=== PATIENT | male | born 1935 | race Caucasian/White ===

== ENCOUNTER 2024-05-02 09:00 | Outpatient (REF) | payer BC, SELFPAY ==
[2024-05-02 10:56] LABS: Vitamin B12 339 pg/mL (200-900)
== END 2024-05-02 09:01 | disposition home or self-care (01) ==
LOC: HO.LAB 09:00
PROVIDERS: Visit Provider Psychiatry & Neurology Neurology
DX: F03.90 Unspecified dementia, unspecified severity, without behavioral disturbance, psychotic disturbance, mood disturbance, and anxiety (principal)
CPT/HCPCS: 36415; 82607

== ENCOUNTER 2024-06-14 07:24 | Outpatient (REF) | payer BC, SELFPAY ==
--- NOTE | ~2024-06-14 | CT_ITS ---
EXAMINATION: CT HEAD WITHOUT CONTRAST CLINICAL INFORMATION: Dementia. COMPARISON: None available. TECHNIQUE: Contiguous axial imaging was performed from the skull base to vertex without intravenous administration of contrast. This CT examination was performed using dose optimization techniques as appropriate, variously including the following: *Automated exposure control. *Adjustment of mA and/or kV according to patient size (this includes techniques or standardized protocols for targeted exams where dose is matched to indication/reason for exam; i.e. extremities or head). *Use of iterative reconstruction technique. DLP: 932 mGy-cm FINDINGS: There is no evidence of acute intracranial hemorrhage or edematous territorial infarction. Coates-white matter differentiation is preserved. Scattered and partially confluent hypoattenuation in the periventricular and deep white matter are consistent with moderate microangiopathy. There is a degree of generalized cerebral volume loss with prominence of both the ventricles and sulcal spaces. However, there appears to be mildly disproportionate prominence of the ventricles. The posterior callosal angle is decreased (56 degrees) when measured on a corrected coronal image, orthogonal to the anterior commissure-posterior commissure line. No abnormal mass effect or midline shift. No extra-axial fluid collections. Calcific atherosclerotic disease of the intracranial internal carotid and vertebral arteries. No hyperdense vessel sign. No acute soft tissue or osseous abnormalities. Mild mucosal thickening of the paranasal sinuses. The mastoid air cells and middle ear cavities are clear. Bilateral lens extractions. CT/CT head/brain wo IV con IMPRESSION: 1. No evidence of acute intracranial hemorrhage or edematous territorial infarction. 2. Moderate underlying microangiopathy. 3. There is a degree of generalized cerebral volume loss with prominence of both the ventricles and sulcal spaces. However, there appears to be mildly disproportionate prominence of the ventricles. This may be due to disproportionate central volume loss; however, correlation with symptoms of potential superimposed normal pressure hydrocephalus is recommended. Electronically signed by: Chago Bernal DO 07/31/2024 05:30 AM [facility]
== END 2024-06-14 07:25 | disposition home or self-care (01) ==
LOC: HO.CT 07:24
PROVIDERS: Visit Provider Psychiatry & Neurology Neurology
DX: F03.90 Unspecified dementia, unspecified severity, without behavioral disturbance, psychotic disturbance, mood disturbance, and anxiety (principal)
CPT/HCPCS: 70450

== ENCOUNTER 2024-11-06 09:15 | Day surgery (SDC) | payer MEDICARE, SELFPAY ==
[2024-11-06] VITALS (8 sets, daily range): BP systolic 132–168; BP diastolic 67–89; PULSE 60–61; RESP 18; TEMP 36.4–36.8; O2SAT 96–99; BMI 29.9
--- NOTE | ~2024-11-06 | FL_ITS ---
EXAMINATION: XR LUMBAR PUNCTURE CLINICAL INFORMATION: LARGER VOLUME TAP FOR NPH COMPARISON: None available. TECHNIQUE: Following explaining procedure, benefits in risk, a written consent was obtained from the patient. Patient was placed prone on fluoroscopy table and an optimal site was selected overlying the L4-5 disc level and area marked on the skin. Marked area was cleaned and draped in usual sterile manner. 1% lidocaine was injected at the site. 20-gauge spinal needle was inserted from the skin intrathecally at the L4-5 disc level stylet was withdrawn and CSF collected in 4 test tubes. An opening CSF pressure was obtained as well. Postprocedure stent was introduced and needle withdrawn. Complete hemostasis achieved at puncture site. Patient tolerated procedure extremely well FINDINGS: Fluoroscopy images reveal mild facet joint arthropathy at L5-S1 disc level. No lytic or sclerotic process seen. Opening CSF pressure measured 17 cm of water. Approximately 14 mL of clear CSF fluid was removed in 4 test tubes and the CSF was sent to lab for further analysis. FLUOROSCOPY TIME: 19 seconds DOSE AREA PRODUCT: 659.3 uGy-m2 (microgray-meter squared) FL/FL guided lumbar puncture LP IMPRESSION: Successful fluoroscopy-guided lumbar puncture performed. Electronically signed by: Dominick Flores MD 11/07/2024 01:57 PM EDT
[2024-11-06 10:19] LABS: MANUAL DIFF FLAG NO
[2024-11-06 10:35] LABS: INTERNATIONAL NORM RATIO 1.2 (0.9-1.1); Prothrombin Time 13.5 SEC (10.9-12.4)
[2024-11-06 10:40] LABS: Basophils Absolute Auto 0.1 X10*3/uL (0.0-0.2); Basophils Percent Auto 0.7 % (0-2); Eosinophils Absolute Auto 0.2 X10*3/uL (0.0-0.4); Eosinophils Percent Auto 2.4 % (0-4); Hematocrit 48.6 % (42.0-52.0); Hemoglobin 16.5 g/dl (14.0-18.0); Imm Gran Abs Auto 0.03 X10*3/uL (0.00-0.03); Imm Gran Pct Auto 0.4 % (0.0-0.4); Lymphocytes Absolute Auto 2.2 X10*3/uL (1.2-4.9); Lymphocytes Percent Auto 30.4 % (20-40); Mean Corpuscular Hemoglobin 32.2 pg (27.0-33.0); Mean Corpuscular Volume 94.7 fL (80.0-98.0); Mean Platelet Volume 12.2 fL (9.4-12.4); Monocytes Absolute Auto 0.4 X10*3/uL (0.1-1.2); Monocytes Percent Auto 5.6 % (2-11); Neutrophils Absolute Auto 4.3 x10*3/uL (2.0-8.3); Neutrophils Percent Auto 60.5 % (45-73); Platelet Count 136 X10*3/uL (160-400); Red Blood Count 5.13 X10*6/uL (4.60-5.80); Red Cell Distribution Width 13.3 % (11.0-16.0); White Blood Count 7.1 X10*3/uL (4.8-10.8)
[2024-11-06 10:42] LABS: Anion Gap 12 (12-20); Blood Urea Nitrogen 19 mg/dL (9-16); Calcium 9.2 mg/dL (8.4-10.2); Carbon Dioxide 27 mmol/L (22-29); Chloride 104 mmol/L (96-108); Estimated Glomerular Filt Rate > 60; Glucose Random 181 mg/dL (60-115); Potassium 4.2 mmol/L (3.3-5.1); Sodium 139 mmol/L (135-145)
[2024-11-06 10:59] LABS: Glucose, Whole Blood 145 mg/dL (60-115)
[2024-11-06 12:27] LABS: Glucose CSF 83 mg/dL; Total Protein CSF 47.1 mg/dL (15-45)
[2024-11-06 12:29] LABS: Oligoclonal Serum Yes
[2024-11-06 12:33] LABS: CSF Appearance Clear, Colorless; CSF Tube # 1
[2024-11-06 13:02] LABS: Appearance CSF CLEAR; CSF Tube # 4; Color CSF COLORLESS; Red Blood Cell CSF 2 MM*3; White Blood Cell CSF 3 MM*3
[2024-11-06 13:03] LABS: CSF Monos 57 %; Lymphocytes CSF 43 %
[2024-11-12 01:34] LABS: Albumin 3.9 g/dL (3.6-5.1); Albumin, CSF 28.7 mg/dL (8.0-42.0); IgG 653 mg/dL (600-1540); IgG Synthesis Rate -0.6 mg/24 h (-9.9-3.3); IgG, CSF 2.5 mg/dL (0.8-7.7)
[2024-11-13 05:23] LABS: Oligoclonal Banding Absent (Absent)
== END 2024-11-06 13:56 | disposition home or self-care (01) ==
PROVIDERS: Radiology Diagnostic Radiology; Visit Provider Psychiatry & Neurology Neurology
PROC: 009U3ZZ Drainage of Spinal Canal, Percutaneous Approach (ICD-10-PCS; CPT 62270; principal; 2024-11-06 11:00)
DX: G91.2 (Idiopathic) normal pressure hydrocephalus (principal); E11.9 Type 2 diabetes mellitus without complications; I10 Essential (primary) hypertension; I25.10 Atherosclerotic heart disease of native coronary artery without angina pectoris; I48.91 Unspecified atrial fibrillation; Z79.01 Long term (current) use of anticoagulants; Z79.4 Long term (current) use of insulin; Z79.899 Other long term (current) drug therapy
CPT/HCPCS: 36415; 62328; 80048; 82042; 82945; 82947; 83916; 84157; 85025; 85610; 87015; 87070; 87205; 89051; J2003

== ENCOUNTER → 2024-11-06 11:00 | Outpatient (BNV) | payer MEDICARE, SELFPAY | PROVIDERS: Visit Provider Radiology Diagnostic Radiology | DX: Z01.89 Encounter for other specified special examinations (principal); G91.2 (Idiopathic) normal pressure hydrocephalus | CPT/HCPCS: 62328 ==

== ENCOUNTER 2025-02-20 10:05 | Outpatient (AMB) | payer BC, SELFPAY ==
--- NOTE | 2025-02-20 10:08 | MHC.OFFVIS ---
Intake Visit Reasons: f/u Allergies No Known Allergies Allergy (Verified 11/06/24 09:48) HPI Comments Details: 89 yo RH man with IDDM, HTN, CAD, atrial fibbrillation, s/p cardiac pacemaker was initially seen in June of 2024 for cognitive difficulties. Overall impression was that he suffered from multifactorial cognitive and gait disorder including normal-pressure hydrocephalus. He had a lumbar puncture done to see if he could benefit from shunting. I saw him right after the lumbar puncture and did not see any significant improvement of his walking. Later though, I got induced from family that he thought he was significantly better in terms of walking and cognition and a consultation with neurosurgeon was recommended for possibility of shunting. He was here today with his daughter who stated that neurosurgeon did not give them optimistic opinion and they decided not to do it. He was also here with number of question stating that he was not sure if he really improved after lumbar puncture. 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 Alzheimer disease Vascular dementia Multifactorial dementia Depression Dementia Glaucoma Diabetes Cancer of nasal cavities Pacemaker Surgical History (Updated 11/06/24 @ 09:48 by Ni Estrada RN) History of nasal surgery Assessment & Plan Assessment & Plan (1) Alzheimer dementia: Code(s): G30.9 - Alzheimer's disease, unspecified; F02.80 - Dementia in other diseases classified elsewhere, unspecified severity, without behavioral disturbance, psychotic disturbance, mood disturbance, and anxiety Category: Medical (2) Multifactorial gait disorder: Code(s): R26.89 - Other abnormalities of gait and mobility Category: Medical (3) NPH (normal pressure hydrocephalus): Code(s): G91.2 - (Idiopathic) normal pressure hydrocephalus Category: Medical Plan 1. Multifactorial gait disorder, 2. Alzheimer dementia, 3. Normal-pressure hydrocephalus Recommendation I had a detailed conversation with him in his daughter. At this time, he is advised to use a walker regular basis to avoid any falls. Shunting would probably not help him and was not advise at this time as he has significant cerebral atrophy and cerebellar atrophy contributing to his difficulty with walking including musculoskeletal pathology. No medicine was prescribed. He was hesitant to use a walker but he was advised to do that to avoid any falls. Follow-up would be as needed. Coding Level of Care Code Est Pt Level 4 (72926) Diagnoses Alzheimer dementia G30.9; F02.80 Multifactorial gait disorder R26.89 NPH (normal pressure hydrocephalus) G91.2
--- OUTSIDE RECORDS SUMMARY | 2025-02-20 10:46 | XMS_ITS ---
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 Onset: 0 03/15/2022 Hypercholesterolemia Rolando Harmon M.D. Onset : 03/15/2022 Dementia Rolando Harmon M.D. Onset: Insulin treated type 2 diabetes mellitus Rolando morgan M.D. Onset: 04/19/2023 Ataxia Rolando Harmon M.D. Onset: Social History Type Date Description Comments Sex Male Sex Unknown Lives With Spouse Tobacco Use Start: Unknown Never Smoked Cigarettes Smoking Status Reviewed: 11/19/24 Never Smoked Cigaret veronica ETOH Use Rarely consumes alcohol Allergies and adverse reactions Description No Known Drug Allergies Medications Active Medications SIG Qnty Indications Order ing Provider Date Lantus Jxxmutgs070Hvga/ML Solution Pen-Inject Inject 20 units subcutaneously at bedtime. DX. E11.8 30ml Khadijah Kulkarni M.D. 01/08/2025 Freestyle Grant 3/Sensor/Glucose Monitoring Oghfzk4Wgvozs Misc 1 sensor to skin every fourteen days as directed 3units Khadijah Root-Dileep, M.D. 12/27/2024 Donepezil HCL5mg Tablets 1 tab by mouth every day 90taflory Kulkarni M.D. 11/19/2024 Novolog Myrgata282Tkcl/ML Solution Pen-Inject inject subcutaneously 5 units at breakfast and 5 at supper 30ml E11.8 Khadijah Kulkarni M.D. 08/29/2023 BD Ins Syrng Uf0.5ml Use 1 Syringe To Skin 3X Daily 100unmessi Harmon M.D. 05/31/2023 Onetouch VerioStrips Use To Test 4 Times A Day For 30 Days 100unmessi Harmon M.D. 10/19/2022 Freestyle Grant 2/[place]/Flash Glucose Monitoring Ugtlpc5Qyhjps Device use as directed with sensors 1unmessi Harmon M.D. 06/08/2022 Ssvnajs90um Tablets Take 1 Tablet By Mouth Every Day as Directed 90taflory Kulkarni M.D. 03/14/2022 Iesamkiduy64ie Tablets Take 1 Tablet By Mouth Every Day 90taflory Kulkarni M.D. Nxnjzoj5yj Tablets 1 tab by mouth twice a day as needed Unknown History Medications Tresiba Tuchnmgms347Gnsg/ML Solution Pen-Inject Inject 20 units subcutaneously at bedtime. DX. E11.8 15ml Khadijah Kulkarni M.D. 12/23/2024 - 01/08/2025 Lantus Vfsicvxl458Kpkk/ML Solution Pen-Inject Inject 20 units subcutaneously at bedtime. DX. E11.8 30ml Khadijah Kulkarni M.D. 05/27/2024 - 12/23/2024 Immunizations CPT Code Status Date Vaccine Lot # [id number] Given Unknown Zoster (Shingle s) Vaccine (HZV), Recombinant, Subunit, Adjuvanted Vital Signs Date Vital Result Comment 11/19/2024 3:22pm BP Systolic 122 mmHg BP Diastolic 86 mmHg Heart Rate 66 /min Height 64.2 inches 5'4.20 Weight 184.38 lb BMI (Body Mass Index) 31.4 kg/m2 Results Test Acquired Date Facility Test Result H/L Range Note Hemoglobin A1c 11/19/2024 Inhouse Hemoglobin A1c 9.4% Glucose Fingerstick 11/19/2024 Inhouse Glucose Fingerstick 299 Comp. Metabolic Panel (14) 10/28/2024 [facility] Glucose 264 mg/dL High 70-99 BUN 13 mg/dL 8-27 Creatinine 1.08 mg/dL 0.76-1.2 7 eGFR 66 mL/min/1. 73 >59 BUN/Creatinine Ratio 12 10-24 Sodium 136 mmol/L 134-144 Potassium 4.8 mmol/L 3.5-5.2 Chloride 96 mmol/L 96-106 Carbon Dioxide, Total 24 mmol/L 20-29 Calcium 9.0 mg/dL 8.6-10.2 Protein, Total 6.1 g/dL 6.0-8.5 Albumin 4.1 g/dL 3.7-4.7 Globulin, Total 2.0 g/dL 1.5-4.5 Bilirubin, Total 1.4 mg/dL High 0.0-1 .2 Alkaline Phosphatase 75 IU/L 44-121 Ast (Sgot) 22 IU/L 0-40 Alt (SGPT) 23 IU/L 0-44 Lipid Panel 10/28/2024 [facility] Cholesterol, Total 132 mg/dL 100-199 Triglycerides 104 mg/dL 0-149 HDL Cholesterol 48 mg/dL >39 VLDL Cholestero l Todd 19 mg/dL 5-40 LDL Chol Calc (Nih) 65 mg/dL 0-99 LDL Calc Comment: TNP CBC With Differential/Plat elet 10/28/2024 [facility] WBC 6.9 x10E3/uL 3.4-10.8 RBC 5.03 x10E6/uL 4.14-5.8 0 Hemoglobin 16.2 g/dL 13.0-17. 7 Hematocrit 48.8 % 37.5-51. 0 MCV 97 fL 79-97 MCH 32.2 pg 26.6-33. 0 MCHC 33.2 g/dL 31.5-35. 7 RDW 12.6 % 11.6-15. 4 Platelets 127 x10E3/uL Low 150-450 Neutrophils 57 % Not Estab. Lymphs 34 % Not Estab. Monocytes 5 % Not Estab. Eos 3 % Not Estab. Basos 1 % Not Estab. Immature Cells TNP Neutrophils (Absolute) 4.0 x10E3/uL 1.4-7.0 Lymphs (Absolute) 2.3 x10E3/uL 0.7-3.1 Monocytes(Absol u te) 0.4 x10E3/uL 0.1-0.9 Eos (Absolute) 0.2 x10E3/uL 0.0-0.4 Baso (Absolute) 0.0 x10E3/uL 0.0-0.2 Immature Granulocytes 0 % Not Estab. Immature Grans (Abs) 0.0 x10E3/uL 0.0-0.1 NRBC TNP Hematology Comments: TNP Albumin/Creatinin e Ratio, Random Urine 10/28/2024 [facility] Creatinine, Urine TNP mg/dL 1 Albumin, Urine TNP 2 Alb/Creat Ratio TNP Request Problem 10/28/2024 [facility] Request Problem TNP 3 Glucose Fingerstick 08/06/2024 Inhouse Glucose Fingerstick 220 Hemoglobin A1c 08/06/2024 Inhouse Hemoglobin A1c 9.0% Glucose Fingerstick 05/27/2024 Inhouse Glucose Fingerstick 307 Glucose Fingerstick 04/03/2024 Inhouse Glucose Fingerstick 193 Hemoglobin A1c 04/03/2024 Inhouse Hemoglobin A1c 9.4% Glucose Fingerstick 12/26/2023 Inhouse Glucose Fingerstick 214 Glucose Fingerstick 11/03/2023 Inhouse Glucose Fingerstick 164 Hemoglobin A1c 11/03/2023 Inhouse Hemoglobin A1c 8.6% Glucose Fingerstick 08/04/2023 Inhouse Glucose Fingerstick 231 Hemoglobin A1c 08/04/2023 Inhouse Hemoglobin A1c 8.6% Comprehensive Metabolic Panl 04/19/2023 [facility] Glucose 214 mg/dL High (70-99) BUN 19 mg/dL (8-23) Creatinine 1.1 mg/dL (0.7-1.2 ) Sodium 137 mmol/L (133-145 ) Potassium 4.7 mmol/L (3.6-5.2 ) Chloride 100 mmol/L (98-107) Bicarbonate 28 mmol/L (22-29) Anion Gap 9 (4-17) Albumin 4.3 GM/DL (3.4-4.8 ) Calcium 9.1 mg/dL (8.6-10. 5) Bilirubin,Total 1.2 mg/dL (0-1.2 ) Total Protein 6.2 GM/DL (6.2-8.2 ) Ag Ratio 2.3 Ast 18 U/L (0-40) Alk Phos 75 U/L (40-129) Alt 17 U/L (0-41) Estimated GFR Creatinine 65 ML/MIN/1. 73M2 4 Hemoglobin A1c 04/19/2023 Inhouse Hemoglobin A1c 7.8 Glucose Fingerstick 04/19/2023 Inhouse Glucose Fingerstick 237 Vitamin B12 Ser Mass/Vol 04/19/2023 Inhouse Vitamin B12 Ser Mass/Vol <pending> CBC W/Auto Differential 04/19/2023 Inhouse White Blood Count Ser Auto CNT <pending> RBC Red Blood Count-Auto <pending> Hemoglobin Blood <pending> Hematocrit <pending> MCV (Corpuscula r Volume) <pending> MCH (Corpuscula r Hemoglobin) <pending> MCHC (Corpuscular Hemog Conc) <pending> RDW <pending> Platelet Count Blood Auto CNT <pending> MPV <pending> Neutrophils <pending> Fluid Bands <pending> Fluid Lymphocytes <pending> Monocytes <pending> Fluid Body Eosinophils Manual <pending> Basophils % <pending> Absolute Basophils <pending> Absolute Eosinophils <pending> Absolute Lymphocytes Blood <pending> Absolute Monocytes <pending> Absolute Neutrophils Auto CNT <pending> CMP 04/19/2023 Inhouse Albumin Serum/Plasma <pending> Alt - SGPT <pending> Calcium Ser/Plasma Mass/Vol <pending> Carbon Dioxide Ser/Plasm <pending> Chloride Serum/Plasma <pending> Creatinine Seru m Mass/Vol <pending> Glucose Serum <pending> Alkaline Phosphatase QN Ser/PL <pending> Potassium QN Ser/PL Mols/Vol <pending> Protein Total Q N Ser/Plas <pending> Sodium QN Ser/Plasma <pending> Ast - Sgot <pending> BUN - Urea Nitrogen Ser/Plas <pending> Vitamin B12 04/19/2023 [facility] Vitamin B12 385 pg/mL (232-124 5) Complete Abc With Diff 04/19/2023 [facility] WBC 7.3 K/MM3 (4.0-11. 0) RBC 4.97 M/MM3 (4.70-6. 10) HGB 16.2 GM/DL (13.7-17 .1) HCT 50.6 % High (40.5-50 .0) MCV 101.8 FL High (80.0-94 .0) MCH 32.6 pg (27.0-34 .0) MCHC 32.0 g/dL Low (33.0-37 .0) PLT 141 K/MM3 Low (150-460 ) RDW-SD 50.6 FL High (<47.0) MPV 12.1 FL (9.4-12. 4) Automated NRBC 0.0 #/100WBC' S Abs. NRBC 0.0 K/MM3 Neut # 4.5 K/MM3 (1.3-7.0 ) Lymph # 2.0 K/MM3 (0.8-3.1 ) [place]# 0.4 K/MM3 (0.4-1.3 ) Eo # 0.3 K/MM3 (0.0-0.4 ) Baso # 0.1 K/MM3 (0.0-0.1 ) Abs. Imm Gran 0.0 K/MM3 Neut 62.5 % (44-76) Lymph 27.7 % (15-43) Monocyte 4.8 % (4.5-10. 5) Eo 3.7 % (0-6) Baso 0.7 % (0-2) Imm Gran 0.6 % Glucose Fingerstick 01/18/2023 Inhouse Glucose Fingerstick 212 Glucose Fingerstick 11/15/2022 Inhouse Glucose Fingerstick 60 Hemoglobin A1c 11/15/2022 Inhouse Hemoglobin A1c 7.6% Glucose Fingerstick 07/13/2022 Inhouse Glucose Fingerstick 250 Hemoglobin A1c 07/13/2022 Inhouse Hemoglobin A1c 7.5% Comprehensive Metabolic Panl 04/19/2022 [facility] Glucose 162 mg/dL High (70-99) BUN 30 mg/dL High (8-23) Creatinine 1.3 mg/dL High (0.7-1.2 ) Sodium 137 mmol/L (133-145 ) Potassium 4.2 mmol/L (3.6-5.2 ) Chloride 98 mmol/L (98-107) Bicarbonate 26 mmol/L (22-29) Anion Gap 13 (4-17) Albumin 4.5 GM/DL (3.4-4.8 ) Calcium 9.5 mg/dL (8.6-10. 5) Bilirubin,Total 1.7 mg/dL High (0-1.2 ) Total Protein 6.6 GM/DL (6.2-8.2 ) Ag Ratio 2.1 Ast 20 U/L (0-40) Alk Phos 68 U/L (40-129) Alt 13 U/L (0-41) Estimated GFR Creatinine 56 ML/MIN/1. 73M2 5 Lipid Panel 04/19/2022 [facility] Cholesterol, Total 143 mg/dL (<200) Triglyceride 74 mg/dL (<150) HDL Chol 59 mg/dL (>39) LDL Cholesterol , Calculated 69 mg/dL (0-130) Non HDL Cholesterol (Calc) 84 mg/dL (<160) Complete Auto Blood Count 04/19/2022 [facility] WBC 9.6 K/MM3 (4.0-11. 0) RBC 5.05 M/MM3 (4.70-6. 10) HGB 16.1 GM/DL (13.7-17 .1) HCT 48.6 % (40.5-50 .0) MCV 96.2 FL High (80.0-94 .0) MCH 31.9 pg (27.0-34 .0) MCHC 33.1 g/dL (33.0-37 .0) PLT 132 K/MM3 Low (150-460 ) RDW-SD 48.6 FL High (<47.0) MPV 11.7 FL (9.4-12. 4) Automated NRBC 0.0 #/100WBC' S Abs. NRBC 0.0 K/MM3 Glucose Fingerstick 03/15/2022 Inhouse Glucose Fingerstick 116 Hemoglobin A1c 03/15/2022 Inhouse Hemoglobin A1c 7.4 1 Test not performed. Patient was unable to provide a self-collected specimen for the requested testing. The following test(s) were not performed: 2 Test not performed 3 Test not performed. Patient was unable to provide a self-collected specimen for the requested testing. The following test(s) were not performed: TEST: 396234 Albumin/Creatinine Ratio,Urine 4 Creatinine based est imated glomerular filtration (eGFR) in adults is calculated using the [employer] recommended 2020 CKD-EPI equation. Estimates GFR from serum creatinine, age and sex. 5 Creatinine based est imated glomerular filtration (eGFR) in adults is calculated using the [employer] recommended 2020 CKD-EPI equation. Estimates GFR from serum creatinine, age and sex. 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, unspecified E78.00 Pure hypercholestero lemia, unspecified F03.90 Unsp dementia, unsp severity, without beh/psych/mood/anx R74.8 Abnormal levels of o ther serum enzymes Assessments Date Code Description Provider 11/19/2024 E11.9 Type 2 diabetes mellitus wit hout complications HGANSHYAM Birch 11/19/2024 Z79.4 rat exterminator (current) use of i nsulin GHANSHYAM Birch 11/19/2024 I48.91 Atrial fibrillation GHANSHYAM Cannon 11/19/2024 I10 Essential hypertension GHANSHYAM Jc 11/19/2024 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 GHANSHYAM Matos 11/19/2024 E78.00 Hypercholesterolemia GHANSHYAM Birch 11/19/2024 F03.90 Dementia GHANSHYAM Birch 11/19/2024 R74.8 Abnormal levels of other ser um enzymes GHANSHYAM Birch Plan of Treatment Future Appointment(s):* 02/25/2025 10:30 am - Jeanie Roland, BUSINESS PROCESS ANALYST at Main Office 11/19/2024 - GHANSHYAM Birch* E11.9 Type 2 diabetes mellitus without complications * Z79.4 rat exterminator (current) use of insulin * I48.91 Atrial fibrillation * I10 Essential hypertension * 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 * E78.00 Hypercholesterolemia * F03.90 Dementia * R74.8 Abnormal levels of other serum enzymes * Functional Status Description No Information Available Mental Status Description No Information Available Referrals Refer to Reason for Referral Status Appt Leandro e [facility] Neurology Second opinion on CT Scan Patient D eclined [address] [place] [address] [phone] [facility] Cardiology Closed [address] [place] [address] [phone] Wilda Narayan MD Closed [address] [place] [address] [phone] [facility] Closed [address] [place] [address] [phone] [facility] PHYSICAL THERAPY FOR BALANCE ISSUE S Closed 12/01/[address] [place] [address] [phone] [facility] HEARING EVALUATION Closed [address] [place] [address] [phone] [facility] Cardiology Closed [address] [place] [address] [phone] Adam Lucero MD NASAL CANCER Closed [phone] [facility] Cardiology ESSENTIAL HYPERTENSION [address] [place] [address] [phone]
== END 2025-02-20 11:38 | disposition home or self-care (01) ==
LOC: HO.HSM 10:05
PROVIDERS: PCP Physician Assistant; Visit Provider Psychiatry & Neurology Neurology
DX: G30.9 Alzheimer's disease, unspecified (principal); F02.80 Dementia in other diseases classified elsewhere, unspecified severity, without behavioral disturbance, psychotic disturbance, mood disturbance, and anxiety; R26.89 Other abnormalities of gait and mobility; G91.2 (Idiopathic) normal pressure hydrocephalus
CPT/HCPCS: 99212